=== PATIENT | female | born 1985 | race Caucasian/White ===

== ENCOUNTER 2022-04-22 06:50 | Inpatient (IN) | payer BC ==
[2022-04-22] MEDS ORDERED: BUTORPHANOL TARTRATE 1 MG/ML VIAL IVPB ONE (07:44)
[2022-04-22] MEDS ORDERED: PROMETHAZINE HCL 25 MG/1 ML VIAL IVPUSH ONE (07:44)
[2022-04-22 08:20] VITALS: BMI 42.5
[2022-04-22] MEDS: ELECTROLYTE-148 SOLN 1,000 ML IV SCH ×3 (08:40→20:45)
[2022-04-22] MEDS: MISOPROSTOL 25 MCG TABLET (COMPOUNDED BY PHARMACY) PV SCH ×2 (09:08→13:13)
[2022-04-22] MEDS ORDERED: AMPICILLIN - 2 GM in SODIUM CHLORIDE 100 ML IVPB ONE (13:30)
[2022-04-22] MEDS ORDERED: OXYTOCIN 30 UNITS in 0.9% NS 30 UNIT/500 ML INFUS.BAG IVPB SCH (13:30)
[2022-04-22] MEDS ORDERED: OXYTOCIN 30 UNITS in 0.9% NS 30 UNIT/500 ML INFUS.BAG IVPB ONE (14:20)
[2022-04-22] MEDS ORDERED: AMPICILLIN SODIUM 2 GM VIAL ONE (14:55)
[2022-04-22] MEDS ORDERED: BUTORPHANOL TARTRATE 2 MG/ML VIAL ONE (15:44)
[2022-04-22] MEDS ORDERED: PROMETHAZINE HCL 25 MG/1 ML VIAL ONE (15:44)
[2022-04-22] MEDS ORDERED: AMPICILLIN SODIUM 1 GM VIAL ONE ×2 (18:03→22:04)
[2022-04-22] MEDS: AMPICILLIN - 1 GM in SODIUM CHLORIDE 100 ML IVPB SCH ×2 (18:10→22:08)
[2022-04-23] MEDS ORDERED: FENTANYL/BUPIVACAINE/NS/PF - PCEA - 50 ML DISP.SYRIN EP ONE ×3 (00:27→07:13)
[2022-04-23] MEDS: FENTANYL/BUPIVACAINE/NS/PF - PCEA - 50 ML DISP.SYRIN EP SCH ×2 (00:35→07:15)
[2022-04-23] MEDS ORDERED: NALOXONE HCL 0.4 MG/ML VIAL IVPUSH PRN (00:39)
[2022-04-23] MEDS ORDERED: AMPICILLIN SODIUM 1 GM VIAL ONE ×2 (01:53→05:21)
[2022-04-23] MEDS: AMPICILLIN - 1 GM in SODIUM CHLORIDE 100 ML IVPB SCH ×3 (02:00→13:07)
[2022-04-23] MEDS ORDERED: METHYLERGONOVINE MALEATE 0.2 MG/1 ML AMP IM PRN (09:11)
[2022-04-23] MEDS ORDERED: ACETAMINOPHEN 325 MG TABLET (FP) PO PRN (09:11)
[2022-04-23] MEDS ORDERED: CITRIC ACID/SODIUM CITRATE 30 ML UNIT-DOSE CUP PO ONE (09:46)
[2022-04-23] MEDS ORDERED: ACETAMINOPHEN INJECTION 100 ML IVPB ONE (10:29)
[2022-04-23] MEDS ORDERED: OXYTOCIN 20 UNITS in 0.9% NS 40 UNIT/2,000 ML INFUS.BAG IV ONE (10:30)
[2022-04-23] MEDS ORDERED: morphine SULFATE/PF 1 MG/2 ML (2cc Syringe - QUVA) ONE (10:31)
[2022-04-23] MEDS ORDERED: ONDANSETRON 4 MG/2 ML VIAL ONE (10:31)
[2022-04-23] MEDS ORDERED: DEXAMETHASONE SOD PHOSPHATE 4 MG/1 ML VIAL ONE (10:31)
[2022-04-23] MEDS ORDERED: CLINDAMYCIN 900 MG PREMIX IVPB 900 MG/50 ML BAG IVPB ONE (10:41)
[2022-04-23] MEDS ORDERED: AMPICILLIN - 2 GM in SODIUM CHLORIDE 100 ML IVPB ONE (10:41)
[2022-04-23] MEDS ORDERED: GENTAMICIN SO4 80 MG/2 ML VIAL ONE (10:51)
[2022-04-23] MEDS: OXYTOCIN 20 UNITS in 0.9% NS 20 UNIT/1,000 ML INFUS.BAG IV SCH ×2 (11:15→14:00)
[2022-04-23 12:05] LABS: CORD BASE EXCESS -1.6 mmol/L (0-2); CORD PCO2 43.6 mmHg (30-78); CORD pH 7.359 (7.14-7.44)
[2022-04-23 12:11] LABS: CORD PCO2 49.6 mmHg (30-78); CORD pH 7.285 (7.14-7.44)
[2022-04-23] MEDS ORDERED: ONDANSETRON 4 MG/2 ML VIAL IVPUSH PRN (12:24)
[2022-04-23] MEDS ORDERED: ACETAMINOPHEN 1000 MG/100 ML BAG IVPB PRN (12:25)
[2022-04-23] MEDS: ELECTROLYTE-148 SOLN 1,000 ML IV SCH (13:11)
[2022-04-23] MEDS ORDERED: OXYTOCIN 20 UNITS in 0.9% NS 20 UNIT/1,000 ML INFUS.BAG IV ONE (13:49)
[2022-04-23] MEDS: AMPICILLIN - 2 GM in SODIUM CHLORIDE 100 ML IVPB SCH (17:30)
[2022-04-23] MEDS: CLINDAMYCIN 600MG PREMIX IVPB 600 MG/50 ML BAG IVPB SCH (18:08)
[2022-04-23] MEDS ORDERED: oxyCODONE HCL 5 MG TABLET PO PRN ×2 (21:12)
[2022-04-24] MEDS: CLINDAMYCIN 600MG PREMIX IVPB 600 MG/50 ML BAG IVPB SCH ×2 (01:47→09:11)
[2022-04-24] MEDS: AMPICILLIN - 2 GM in SODIUM CHLORIDE 100 ML IVPB SCH ×2 (02:30→10:06)
[2022-04-24] MEDS: SIMETHICONE 80 MG TAB.CHEW (FP) PO PRN ×3 (09:11→20:41)
[2022-04-24] MEDS: IBUPROFEN 600 MG TABLET (FP) PO PRN ×3 (09:11→20:39)
[2022-04-24] MEDS ORDERED: BISACODYL 10 MG SUPP.RECT RC PRN (09:12)
[2022-04-24] MEDS: ENOXAPARIN NA (PORCINE) 40 MG/0.4 ML DISP.SYRIN SQ SCH (09:12)
[2022-04-24 09:26] LABS: BASO % 0.1 % (0-2.0); EOS % 0.1 % (0-4.5); HEMOGLOBIN 9.5 GM/dL (10.7-15.3); LYMPH % 9.7 % (8-40); MCH 27.4 pg (25.7-33.7); MCHC 31.8 g/dl (32.0-36.0); MEAN CELL VOLUME 86.3 fl (80-96); MEAN PLT VOLUME 9.2 fl (7.5-11.1); MONO % 7.9 % (3.8-10.2); NEUT % 82.2 % (42.8-82.8); PLATELET COUNT 236 10^3/uL (134-434); RBC 3.48 M/mm3 (3.60-5.2); RDW 15.2 % (11.6-15.6); WHITE BLOOD COUNT 15.1 K/mm3 (4.0-10.0)
[2022-04-24] MEDS: OXYTOCIN 20 UNITS in 0.9% NS 20 UNIT/1,000 ML INFUS.BAG IV SCH (20:48)
[2022-04-25] MEDS: IBUPROFEN 600 MG TABLET (FP) PO PRN ×3 (05:00→23:45)
[2022-04-25] MEDS: SIMETHICONE 80 MG TAB.CHEW (FP) PO PRN ×3 (05:01→23:45)
[2022-04-25] MEDS: ENOXAPARIN NA (PORCINE) 40 MG/0.4 ML DISP.SYRIN SQ SCH (10:51)
[2022-04-25 22:43] VITALS: RESP 18
[2022-04-26 08:52] LABS: BASO % 0.3 % (0-2.0); EOS % 1.9 % (0-4.5); HEMATOCRIT 29.5 % (32.4-45.2); HEMOGLOBIN 9.5 GM/dL (10.7-15.3); LYMPH % 15.6 % (8-40); MCH 27.8 pg (25.7-33.7); MCHC 32.3 g/dl (32.0-36.0); MEAN CELL VOLUME 86.1 fl (80-96); MEAN PLT VOLUME 9.1 fl (7.5-11.1); MONO % 8.4 % (3.8-10.2); NEUT % 73.8 % (42.8-82.8); PLATELET COUNT 245 10^3/uL (134-434); RBC 3.43 M/mm3 (3.60-5.2); RDW 15.6 % (11.6-15.6); WHITE BLOOD COUNT 8.9 K/mm3 (4.0-10.0)
[2022-04-26] MEDS: ENOXAPARIN NA (PORCINE) 40 MG/0.4 ML DISP.SYRIN SQ SCH (09:30)
[2022-04-26 09:44] VITALS: BP 123/76; PULSE 94; TEMP 98.9
== END 2022-04-26 11:30 | disposition home or self-care (01) | DRG 788 ==
LOC: JLDR 06:50 → J3W 04-23 14:00
PROVIDERS: ADMIT Obstetrics & Gynecology; ATTEND Obstetrics & Gynecology
PROC: 10D00Z1 Extraction of Products of Conception, Low, Open Approach (ICD-10-PCS; principal; 2022-04-23)
DX: O62.0 Primary inadequate contractions (principal); O76 Abnormality in fetal heart rate and rhythm complicating labor and delivery; Z3A.37 37 weeks gestation of pregnancy; Z37.0 Single live birth
CPT/HCPCS: 36415; 36600; 82803; 85025; 88307-TC